=== PATIENT | female | born 1980 | race Caucasian/White ===

== ENCOUNTER → 2018-04-01 | Outpatient (CLI) | payer OTHER ==
--- NOTE | 2018-04-01 12:51 | RADIOLOGY REPORT (SQ) ---
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 TECHNIQUE: PROCEDURE: T1 pre and post gadolinium, T2 fat sat weight sequences with attention to the brachial plexus. Coronal and axial sequences include both sides. Sagittal imaging is of the affect ed (left) side. CONTRAST TYPE AND DOSE: 15 mL Dotarem. RENAL FUNCTION: None required. The patient is less than 50 years old. LIMITATIONS: None. FINDINGS: Left brachial plexus: No regional mass. No edema or abnormal enhancement. Grossly symme tric appearance compared to the opposite side. Other soft tissues: Lung apices look generally clear. Lobulated hyperintense T2 mass in the deep po sterior left chest wall, subscapular. Please see axial STIR series 8, image 18 and adjacent slices. This is a probable hemangioma measuring at least 3 cm transverse dimension. Bones: As assessed, normal marrow signal. Mild cervical spondylosis with multilevel small disc osteo phyte complexes. No norma cord compression detected. IMPRESSION: 1. No mass, edema or abnormal enhancement related to the left brachial plexus. 2. Susp ect a small vascular malformation in the deep posterior left chest wall tissues, likely a hemangioma. TECHNICAL DOCUMENTATION: JOB ID: [id number] [employer]- All Rights Reserved Reading location - IP/workstation name: [email or web address]
== END ==
LOC: RAD 08:04
PROVIDERS: ATTEND Orthopaedic Surgery
DX: G54.0 Brachial plexus disorders (principal)
CPT/HCPCS: 71552; A9576